=== PATIENT | male | born 1930 | race Caucasian/White ===

== ENCOUNTER 2020-06-04 11:25 | Inpatient (IN) | payer MEDICARE, OTHER ==
[2020-06-04 12:59] LABS: #Monocytes 0.8 10x3/uL (0.0-1.1); #Neutrophils 13.6 10x3/uL (1.5-8.4); %Basophils 0.2 % (0.0-2.0); %Lymphocytes 5.3 % (18.0-47.0); %Monocytes 5.3 % (0.0-10.0); %Neutrophils 86.6 % (40.0-75.0); Hemoglobin 10.5 g/dL (13.5-17.5); Mean Corpuscular HGB CONC 33.8 g/dL (32.0-36.0); Mean Corpuscular Hemoglobin 35.8 pg (27.0-33.0); Mean Corpuscular Volume 106.1 fl (81.2-95.1); Platelet Count 137 10x3/uL (150-450); RBC Distribution Width 18.2 % (11.5-14.5); Red Blood Cell (RBC) Count 2.93 10x6/uL (4.32-5.72); White Blood Cell (WBC) Count 15.7 10x3/uL (3.5-10.5)
[2020-06-04 13:10] LABS: INR-International Normal Ratio 1.7; PTT 29.9 sec (22.0-33.0); Prothrombin Time 17.2 sec (9.5-12.1)
[2020-06-04 13:15] LABS: ALT (SGPT) 79 U/L (8-55); AST (SGOT) 146 U/L (5-34); Albumin 3.2 g/dL (3.4-4.8); Alkaline Phosphatase 76 U/L (40-110); Anion Gap 24 mmol/L (10-20); BUN (Urea Nitrogen) 92 mg/dL (8.4-25.7); Bilirubin, Total 2.5 mg/dL (0.2-1.2); Calc. Creatinine Clearance 0 mL/min (70-130); Calcium 8.9 mg/dL (7.8-10.44); Carbon Dioxide 18 mmol/L (23-31); Chloride 100 mmol/L (98-107); Globulin 3.7 g/dL (2.4-3.5); Glucose 123 mg/dL (83-110); Potassium 5.3 mmol/L (3.5-5.1); Protein, Total 6.9 g/dL (5.8-8.1); Sodium 137 mmol/L (136-145)
[2020-06-04 13:25] LABS: Macrocytosis SLIGHT = 6-15 cells (100X) (0-5/hpf)
[2020-06-04 13:46] LABS: Platelet Morphology Comment Appears Adequate
[2020-06-04 13:47] LABS: CKMB 24.4 ng/mL (0-6.6)
[2020-06-04 13:49] LABS: Anisocytosis SLIGHT = 6-15 cells (100X) (0-5/hpf)
[2020-06-04] MEDS ORDERED: Piperacillin/Tazobactam 4.5 GM VIAL ONE (15:52)
[2020-06-04 15:55] LABS: Lactic Acid 2.3 mmol/L (0.5-2.2)
[2020-06-04] MEDS ORDERED: Enoxaparin Sodium 80 MG/0.8 ML SYRINGE ONE (16:42)
[2020-06-04] MEDS ORDERED: Aspirin Chewable 81 MG TAB ONE (16:42)
[2020-06-04 17:34] VITALS: BMI 25.5
[2020-06-04 17:49] LABS: Troponin I 1.669 ng/mL (< 0.028)
[2020-06-04] MEDS ORDERED: Ondansetron PF 4 MG/2 ML Vial IVP PRN (19:29)
[2020-06-04] MEDS ORDERED: HYDROcodone/Acetaminophen 5/325 mg Tablet PO PRN (19:29)
[2020-06-04] MEDS ORDERED: Senokot S 8.6-50 MG TAB PO PRN (19:29)
[2020-06-04] MEDS ORDERED: Guaifenesin DM 100-10/5 ML UDCUP PO PRN (19:29)
[2020-06-04] MEDS ORDERED: Acetaminophen 325 MG TAB PO PRN (19:29)
[2020-06-04] MEDS ORDERED: Calcium Carbonate 500 MG ChewTAB PO PRN (19:29)
[2020-06-04] MEDS ORDERED: Zolpidem Tartrate 5 MG TAB PO PRN (19:29)
[2020-06-04] MEDS ORDERED: Sodium Chloride 0.9% 1,000 ML IV SCH (19:45)
[2020-06-04 20:12] LABS: Troponin I 1.864 ng/mL (< 0.028)
[2020-06-04] MEDS ORDERED: Sodium Chloride 0.9% 1,000 ML ONE (20:18)
[2020-06-04] MEDS: Ampicillin/Sulbactam 3 GM in Sodium Chloride 0.9% 100 ML IVPB SCH (20:25)
[2020-06-04] MEDS: Metoprolol Tartrate 25 MG TAB PO SCH (20:27)
[2020-06-04 22:38] LABS: Bilirubin Neg (Negative); Blood, Urine 25 (Negative); Clarity Slightly Cloudy (Clear); Glucose, Urine (Dipstick) Normal (Negative); Ketone, Urine Negative (Negative); Leukocyte Negative (Negative); Nitrite Negative (Negative); Protein, Urine (Dipstick) 30 mg/dl (Neg-Trace); Specific Gravity, Urine 1.015 (1.002-1.036)
[2020-06-04 22:51] LABS: Bacteria/HPF None Seen HPF (None Seen); Mucous/LPF None Seen LPF (<2+); RBC/HPF 0-3 HPF (0-3); Squamous Epithelial 0-3 HPF (0-3); Transitional Epithelial 0-3 HPF (None Seen); WBC/HPF 0-3 HPF (0-3)
[2020-06-05 00:02] LABS: CKMB 19.8 ng/mL (0-6.6)
[2020-06-05 05:08] LABS: #Monocytes 0.8 10x3/uL (0.0-1.1); #Neutrophils 9.1 10x3/uL (1.5-8.4); %Basophils 0.2 % (0.0-2.0); %Lymphocytes 7.1 % (18.0-47.0); %Monocytes 7.5 % (0.0-10.0); %Neutrophils 81.9 % (40.0-75.0); Hemoglobin 9.8 g/dL (13.5-17.5); Mean Corpuscular Hemoglobin 34.9 pg (27.0-33.0); Mean Corpuscular Volume 105.7 fl (81.2-95.1); Mean Platelet Volume 11.4 fl (7.4-10.4); Platelet Count 141 10x3/uL (150-450); RBC Distribution Width 18.6 % (11.5-14.5); Red Blood Cell (RBC) Count 2.81 10x6/uL (4.32-5.72); White Blood Cell (WBC) Count 11.1 10x3/uL (3.5-10.5)
[2020-06-05 05:27] LABS: Lactic Acid 2.1 mmol/L (0.5-2.2)
[2020-06-05 05:31] LABS: ALT (SGPT) 64 U/L (8-55); AST (SGOT) 107 U/L (5-34); Albumin 2.7 g/dL (3.4-4.8); Alkaline Phosphatase 64 U/L (40-110); Anion Gap 20 mmol/L (10-20); BUN (Urea Nitrogen) 98 mg/dL (8.4-25.7); Bilirubin, Total 1.6 mg/dL (0.2-1.2); CK (CPK) 987 U/L (30-200); Calc. Creatinine Clearance 20 mL/min (70-130); Carbon Dioxide 19 mmol/L (23-31); Cardiac Risk 3.7 (Less than 4.5); Chloride 102 mmol/L (98-107); Cholesterol 86 mg/dl (< 200 Desired); Globulin 3.1 g/dL (2.4-3.5); Glucose 123 mg/dL (83-110); HDL Cholesterol 23 mg/dL (>60 Neg Risk); LDL Cholesterol, Calculated 51 mg/dL; Potassium 5.2 mmol/L (3.5-5.1); Protein, Total 5.8 g/dL (5.8-8.1); Sodium 136 mmol/L (136-145); Triglycerides 61 mg/dL (Less than 150)
[2020-06-05 05:39] LABS: Thyroid Stimulating Hormone 13.3086 uIU/mL (0.35-4.94)
[2020-06-05 05:55] LABS: CKMB 13.2 ng/mL (0-6.6)
[2020-06-05] MEDS ORDERED: FLU VACC QS2020-21(65YR UP)/PF 240 MCG/0.7 ML SYRINGE IM ONE (09:00)
[2020-06-05] MEDS ORDERED: Ampicillin/Sulbactam 3 GM VIAL ONE (09:37)
[2020-06-05] MEDS: Famotidine 20 MG TAB PO SCH (09:44)
[2020-06-05] MEDS: Folic Acid 1 MG TAB PO SCH (09:44)
[2020-06-05] MEDS: Aspirin 81 mg Enteric Coated Tablet PO SCH (09:45)
[2020-06-05] MEDS: Calcium Carbonate 600 MG + Vit D TAB PO SCH ×2 (09:46→18:35)
[2020-06-05] MEDS: Ampicillin/Sulbactam 3 GM in Sodium Chloride 0.9% 100 ML IVPB SCH ×2 (09:46→20:57)
[2020-06-05] MEDS: Metoprolol Tartrate 25 MG TAB PO SCH ×2 (10:02→20:57)
[2020-06-05 13:48] LABS: Vitamin D, 25 Hydroxy 24.6 ng/ml (> 30.0)
[2020-06-05] MEDS: Furosemide 40 MG/4 ML VIAL SLOW IVP SCH (14:22)
[2020-06-05] MEDS: Enoxaparin Sodium 30 MG/0.3 ML SYRINGE SC SCH (20:57)
[2020-06-06 05:27] LABS: SARS-CoV-2 PCR by NAA Indeterminate (NotDetected)
[2020-06-06] MEDS: Furosemide 40 MG/4 ML VIAL SLOW IVP SCH ×2 (05:44→15:21)
[2020-06-06 05:47] LABS: Hemoglobin 9.9 g/dL (13.5-17.5); Mean Corpuscular HGB CONC 33.7 g/dL (32.0-36.0); Mean Corpuscular Hemoglobin 35.4 pg (27.0-33.0); Mean Platelet Volume 11.9 fl (7.4-10.4); Platelet Count 137 10x3/uL (150-450); RBC Distribution Width 18.6 % (11.5-14.5); White Blood Cell (WBC) Count 8.7 10x3/uL (3.5-10.5)
[2020-06-06 05:58] LABS: Anion Gap 16 mmol/L (10-20); BUN (Urea Nitrogen) 107 mg/dL (8.4-25.7); Calc. Creatinine Clearance 20 mL/min (70-130); Calcium 7.8 mg/dL (7.8-10.44); Carbon Dioxide 21 mmol/L (23-31); Chloride 103 mmol/L (98-107); Glucose 105 mg/dL (83-110); Potassium 4.9 mmol/L (3.5-5.1); Sodium 135 mmol/L (136-145)
[2020-06-06 06:04] LABS: MDiff Complete? YES
[2020-06-06 06:08] LABS: Band 9 % (5-11); Lymphocytes 14 % (21-51); Monocytes 8 % (0-10); Neutrophil 68 % (42-75)
[2020-06-06 06:09] LABS: Eosinophils 1 % (0-10)
[2020-06-06 06:10] LABS: Anisocytosis MODERATE=16-30 cells (100X) (0-5/hpf); Hypochromia SLIGHT = 6-15 cells (100X) (0-5/hpf); Macrocytosis SLIGHT = 6-15 cells (100X) (0-5/hpf); Poikilocytosis SLIGHT = 6-15 cells (100X) (0-5/hpf)
[2020-06-06 06:11] LABS: Platelet Morphology Comment Appears Decreased
[2020-06-06] MEDS: Metoprolol Tartrate 25 MG TAB PO SCH ×2 (08:41→21:31)
[2020-06-06] MEDS: Spironolactone 25 MG TAB PO SCH (08:41)
[2020-06-06] MEDS: Folic Acid 1 MG TAB PO SCH (08:44)
[2020-06-06] MEDS: Aspirin 81 mg Enteric Coated Tablet PO SCH (08:44)
[2020-06-06] MEDS: Cholecalciferol 1,000 UNITS (25 MCG) TAB PO SCH (08:45)
[2020-06-06] MEDS: Famotidine 20 MG TAB PO SCH (08:45)
[2020-06-06] MEDS: Ampicillin/Sulbactam 3 GM in Sodium Chloride 0.9% 100 ML IVPB SCH ×2 (08:46→21:29)
[2020-06-06] MEDS: Calcium Carbonate 600 MG + Vit D TAB PO SCH ×2 (08:46→16:54)
[2020-06-06] MEDS ORDERED: Furosemide 40 MG TAB PO SCH (09:00)
[2020-06-06] MEDS ORDERED: Senokot S 8.6-50 MG TAB PO SCH (11:30)
[2020-06-06] MEDS: Enoxaparin Sodium 30 MG/0.3 ML SYRINGE SC SCH (21:30)
[2020-06-06] MEDS: Senokot S 8.6-50 MG TAB PO SCH (21:31)
[2020-06-07 06:36] LABS: Anion Gap 17 mmol/L (10-20); BUN (Urea Nitrogen) 107 mg/dL (8.4-25.7); Calc. Creatinine Clearance 20 mL/min (70-130); Calcium 7.9 mg/dL (7.8-10.44); Carbon Dioxide 21 mmol/L (23-31); Chloride 101 mmol/L (98-107); Glucose 113 mg/dL (83-110); Magnesium 2.2 mg/dL (1.6-2.6); Potassium 4.7 mmol/L (3.5-5.1); Sodium 134 mmol/L (136-145)
[2020-06-07] MEDS: Furosemide 40 MG/4 ML VIAL SLOW IVP SCH ×2 (06:37→14:22)
[2020-06-07] MEDS: Levothyroxine Sodium 25 MCG TAB PO SCH (06:37)
[2020-06-07 06:43] LABS: Hemoglobin 10.4 g/dL (13.5-17.5); Mean Corpuscular HGB CONC 33.1 g/dL (32.0-36.0); Mean Corpuscular Hemoglobin 35.1 pg (27.0-33.0); Mean Corpuscular Volume 106.1 fl (81.2-95.1); Mean Platelet Volume 12.2 fl (7.4-10.4); Platelet Count 146 10x3/uL (150-450); RBC Distribution Width 18.6 % (11.5-14.5); Red Blood Cell (RBC) Count 2.96 10x6/uL (4.32-5.72); White Blood Cell (WBC) Count 8.1 10x3/uL (3.5-10.5)
[2020-06-07 07:44] LABS: MDiff Complete? YES
[2020-06-07 07:48] LABS: Band 10 % (5-11); Lymphocytes 6 % (21-51); Metamyelocyte 3 % (0-0); Monocytes 10 % (0-10); Myelocyte 1 % (0-0); Neutrophil 70 % (42-75)
[2020-06-07 07:49] LABS: Macrocytosis SLIGHT = 6-15 cells (100X) (0-5/hpf); Platelet Morphology Comment Appears Adequate
[2020-06-07] MEDS: Metoprolol Tartrate 25 MG TAB PO SCH ×2 (10:04→20:58)
[2020-06-07] MEDS: Calcium Carbonate 600 MG + Vit D TAB PO SCH ×2 (10:05→17:24)
[2020-06-07] MEDS: Cholecalciferol 1,000 UNITS (25 MCG) TAB PO SCH (10:06)
[2020-06-07] MEDS: Folic Acid 1 MG TAB PO SCH (10:06)
[2020-06-07] MEDS: Aspirin 81 mg Enteric Coated Tablet PO SCH (10:07)
[2020-06-07] MEDS: Famotidine 20 MG TAB PO SCH (10:07)
[2020-06-07] MEDS: Spironolactone 25 MG TAB PO SCH (10:07)
[2020-06-07] MEDS: Senokot S 8.6-50 MG TAB PO SCH ×2 (10:08→20:58)
[2020-06-07] MEDS: Ampicillin/Sulbactam 3 GM in Sodium Chloride 0.9% 100 ML IVPB SCH (10:15)
[2020-06-07] MEDS: Enoxaparin Sodium 30 MG/0.3 ML SYRINGE SC SCH (20:57)
[2020-06-08 06:37] LABS: Anion Gap 19 mmol/L (10-20); BUN (Urea Nitrogen) 105 mg/dL (8.4-25.7); Calc. Creatinine Clearance 21 mL/min (70-130); Calcium 8.1 mg/dL (7.8-10.44); Carbon Dioxide 21 mmol/L (23-31); Chloride 100 mmol/L (98-107); Glucose 108 mg/dL (83-110); Potassium 4.5 mmol/L (3.5-5.1); Sodium 135 mmol/L (136-145)
[2020-06-08] MEDS: Furosemide 40 MG/4 ML VIAL SLOW IVP SCH ×2 (06:39→14:00)
[2020-06-08] MEDS: Levothyroxine Sodium 25 MCG TAB PO SCH (06:39)
[2020-06-08] MEDS: Calcium Carbonate 600 MG + Vit D TAB PO SCH ×2 (08:00→18:20)
[2020-06-08 08:58] VITALS: BP 122/72; TEMP 97.7
[2020-06-08] MEDS ORDERED: Lisinopril 2.5 MG TAB PO SCH (09:00)
[2020-06-08] MEDS: Senokot S 8.6-50 MG TAB PO SCH (09:00)
[2020-06-08] MEDS: Aspirin 81 mg Enteric Coated Tablet PO SCH (09:00)
[2020-06-08] MEDS: Metoprolol Tartrate 25 MG TAB PO SCH (12:57)
[2020-06-08] MEDS: Spironolactone 25 MG TAB PO SCH (12:57)
[2020-06-08] MEDS: Cholecalciferol 1,000 UNITS (25 MCG) TAB PO SCH (12:57)
[2020-06-08] MEDS: Folic Acid 1 MG TAB PO SCH (12:57)
[2020-06-08] MEDS: Famotidine 20 MG TAB PO SCH (12:58)
[2020-06-09] MEDS ORDERED: Furosemide 20 MG TAB PO SCH (09:00)
== END 2020-06-08 20:10 | disposition short-term general hospital (02) | DRG 280 ==
LOC: CSHERS 11:25 → CSHTELE 17:28
PROVIDERS: ADMIT Internal Medicine; ATTEND Hospitalist
DX: I21.4 Non-ST elevation (NSTEMI) myocardial infarction (principal); I50.21 Acute systolic (congestive) heart failure; E87.2 Acidosis; N17.9 Acute kidney failure, unspecified; R18.8 Other ascites; M62.82 Rhabdomyolysis; K04.7 Periapical abscess without sinus; M47.812 Spondylosis without myelopathy or radiculopathy, cervical region; R29.6 Repeated falls; W19.XXXA Unspecified fall, initial encounter; E87.5 Hyperkalemia; R53.81 Other malaise; D53.9 Nutritional anemia, unspecified; Z95.0 Presence of cardiac pacemaker; N18.31 Chronic kidney disease, stage 3a; Z95.2 Presence of prosthetic heart valve; Z90.49 Acquired absence of other specified parts of digestive tract; Z88.1 Allergy status to other antibiotic agents; R26.9 Unspecified abnormalities of gait and mobility; K76.1 Chronic passive congestion of liver; Z79.899 Other long term (current) drug therapy
CPT/HCPCS: 36415; 70450; 70486; 71045; 72125; 76770; 80048; 80053; 80061; 81001; 82306; 82550; 82553; 83605; 83735; 84439; 84443; 84484; 85025; 85610; 85730; 87040; 87635; 93005; 93306; 93923; 93970; 96365; 96372; J0295; J1650; J1940; J2543; J3490; J7050; U0003; U0005